=== PATIENT | female | born 1990 | race African-American/Black ===

== ENCOUNTER 2018-02-03 09:10 | Emergency (ER) | payer SELFPAY ==
[~2018-02-03] VITALS: Ht 157.5 cm; Wt 55.0 kg
[2018-02-03 09:39] VITALS: BP 127/81
== END 2018-02-03 15:53 | disposition home or self-care (01) ==
LOC: ER 14:09
DX: L03.316 Cellulitis of umbilicus (principal); R03.0 Elevated blood-pressure reading, without diagnosis of hypertension
CPT/HCPCS: 99283